=== PATIENT | female | born 1990 ===

== ENCOUNTER → 2017-12-22 | Outpatient (CLI) | payer OTHER | LOC: LAB SHORT 09:53 → LAB 09:53 | PROVIDERS: Nurse Practitioner | DX: Z01.419 Encounter for gynecological examination (general) (routine) without abnormal findings (principal) | CPT/HCPCS: G0145 ==

== ENCOUNTER → 2022-09-29 | Outpatient (CLI) | payer OTHER ==
[2022-10-05 16:11] LABS: HPV 16 Negative (Negative); HPV 18 Negative (Negative); HPV OTHER HR TYPES Negative (Negative)
== END | disposition home or self-care (01) ==
LOC: LAB SHORT 12:00 → LAB 12:00
PROVIDERS: Physician Assistant
DX: Z01.419 Encounter for gynecological examination (general) (routine) without abnormal findings (principal)
CPT/HCPCS: 87624; G0145